=== PATIENT | female | born 1940 | race Hispanic/Latino ===

== ENCOUNTER → 2022-05-15 | Outpatient (CLI) | payer OTHER | END | disposition home or self-care (01) | LOC: RAH 08:59 | PROVIDERS: ATTEND Internal Medicine Gastroenterology | DX: K80.20 Calculus of gallbladder without cholecystitis without obstruction (principal); R10.13 Epigastric pain; N28.1 Cyst of kidney, acquired | CPT/HCPCS: 76700 ==